=== PATIENT | female | born 1965 | race Caucasian/White ===

== ENCOUNTER 2019-06-08 09:35 | Emergency (ER) | payer BC, MEDICAID, SELFPAY ==
[2019-06-08 09:46] VITALS: BP 111/72; PULSE 98; RESP 16; TEMP 37.7; O2SAT 98
--- NOTE | 2019-06-08 10:01 | ED.GENADULT ---
HPI - General Adult General Chief complaint: Urogenital-Female Stated complaint: vomitting/diarrhea Time Seen by Provider: 06/08/19 10:15 Source: patient and RN notes reviewed Mode of arrival: ambulatory Limitations: no limitations History of Present Illness HPI narrative: 53-year-old female who presents to [facility] with complaints of nausea and vomiting which started on Tuesday with last episode yesterday morning,She states she is drinking fluids adequately and has just been maintaining a light diet. Patient also complains of 2 days history of burning and pain with urination, urgency and some perineal pressure, denies noting any blood or any flank pain. Patient states also that she has had some fevers 2 days ago with chills and body aches, has a cough with some runny nose and some nasal congestion. Patient states she is taking DayQuil and NyQuil for her respiratory symptoms. MD complaint: vomiting ,diarrhea, URI symptoms and UTI symptoms Onset (ago): day(s) Location: head (nasal drainage), abdomen (nausea and vomiting no abdominal pain) and pelvis (UTI symptoms) Radiation: non-radiation Severity: mild and moderate Severity scale (1-10): 2 Quality: aching Pain Consistency: intermittent Relieving factors: none Exacerbating factors: none Associated symptoms: cough, fever/chills, headaches, loss of appetite, nausea/vomiting and other (UTI symptoms and nasal congestion and drainage) Treatments prior to arrival: other (Dayquil and Nyquil) Related Data Home Medications Medication Instructions Recorded Confirmed levothyroxine 25 mcg PO DAILY 02/03/19 06/08/19 lisinopril 40 mg PO DAILY 02/03/19 06/08/19 pravastatin 40 mg PO DAILY 02/03/19 06/08/19 trazodone 100 mg PO HS 02/03/19 06/08/19 Allergies Allergy/AdvReac Type Severity Reaction Status Date / Time Penicillins Allergy Unknown Rash Verified 06/08/19 10:09 Sulfa (Sulfonamide Allergy Unknown Rash Verified 06/08/19 10:09 Antibiotics) Review of Systems Review of Systems: Narrative: CONSTITUTIONAL: Positive history fevers 2 days ago, with chills, or sweats. EYES: Denies visual changes, redness, or discharge. ENT: Positive rhinorrhea, congestion, no sore throat, or otalgia. CARDIOVASCULAR: Denies chest pain, palpitations, or edema. RESPIRATORY: positive cough denies dyspnea, voices rib pain related to cough and vomiting GASTROINTESTINAL: Denies abdominal pain, positive nausea, vomiting, or diarrhea. GENITOURINARY: Positive dysuria no hematuria. SKIN: Denies rash or itching. MUSCULOSKELETAL: Denies back pain, joint pain, or myalgia. NEUROLOGIC positive headaches, no numbness, or weakness. PSYCHIATRIC: Positive anxiety no depression. All systems reviewed & are unremarkable except as noted in HPI and below PMFSH Past Medical History Medical History (Updated 06/10/19 @ 20:04 by Kmaini Root NP) HTN (hypertension) Hyperlipidemia Hypothyroid Insomnia Post-menopausal Surgical History Surgical History History of cholecystectomy Hx of appendectomy Tubal ligation status Social History Social History (Updated 06/08/19 @ 10:25 by Kamini Root NP) Smoking packs per day: 0.5 Smoking cigarettes per day: 10.0 Smoking status: Current every day smoker Tobacco type: cigarettes Alcohol intake: current Living arrangements: with family Gender identity (if verbalized by the patient): Female Comments At time of signature, agree with nursing past medical, social history. There is no relevant family history pertinent to the presenting complaint Exam Narrative: Exam Narrative: GENERAL: Well-appearing, well-nourished, and in no acute distress. HEAD: Normocephalic, atraumatic. EYES: PERRLA and EOMI. ENT: Nares red, clear rhinorrhea or epistaxis. Mucous membranes moist.T's normal with good light reflex, throat mild redness, no lesions or exudates, tonsil not enlarged, post nasal drainage present. NECK:
== END 2019-06-08 10:30 | disposition home or self-care (01) ==
PROVIDERS: Emergency Provider Registered Nurse
DX: N39.0 Urinary tract infection, site not specified (principal); J10.1 Influenza due to other identified influenza virus with other respiratory manifestations; R11.0 Nausea; F17.210 Nicotine dependence, cigarettes, uncomplicated; I10 Essential (primary) hypertension; E78.5 Hyperlipidemia, unspecified; E03.9 Hypothyroidism, unspecified
CPT/HCPCS: 81003; 87077; 87086; 87088; 87186; 87804; 99213; G0463